=== PATIENT | female | born 1955 ===

== ENCOUNTER 2017-07-05 17:39 | Emergency (ER) | payer OTHER ==
[2017-07-05 17:48] VITALS: O2SAT 97
[2017-07-05 18:47] LABS: BASO # 0.1 K/uL (0.0-0.2); BASO % 1.3 % (0.0-2.0); EOS # 0.2 K/uL (0.0-0.7); EOS % 3.7 % (0.0-4.0); HEMOGLOBIN 13.6 g/dL (12.0-16.0); LYMPH # 1.7 K/uL (1.0-4.3); LYMPH % 32.8 % (20.0-40.0); MEAN CELL VOLUME 92.8 fl (81.0-99.0); MEAN CORPUSCULAR HGB CONC 32.3 g/dL (33.0-37.0); MEAN PLATELET VOLUME 10.3 fl (7.2-11.7); MONO # 0.5 K/uL (0.0-0.8); MONO % 9.8 % (0.0-10.0); NEUT # 2.7 K/uL (1.8-7.0); NEUT % 52.4 % (50.0-75.0); NRBC % 0.2 % (0.0-0.0); RBC 4.53 Mil/uL (3.80-5.20); RED CELL DISTRIBUTION WIDTH 15.9 % (11.5-14.5); WHITE BLOOD COUNT 5.1 K/uL (4.8-10.8)
[2017-07-05 19:03] LABS: ALB/GLOB RATIO 0.8 (1.0-2.1); ALBUMIN 3.7 g/dL (3.5-5.0); ALT/SGPT 199 U/L (9-52); AST/SGOT 208 U/L (14-36); BLOOD UREA NITROGEN 11 mg/dl (7-17); GFR AFRICAN-AMERICAN > 60; GFR NON-AFRICAN AMERICAN > 60; LIPASE 85 U/L (23-300); MAGNESIUM 1.8 MG/DL (1.6-2.3)
[2017-07-05 19:13] LABS: B-TYPE NATRIURETIC PEPTIDE 215 pg/ml (0-900)
[2017-07-05 19:33] LABS: PARTIAL THROMBOPLASTIN TIME 30.8 Seconds (25.6-37.1)
[2017-07-05 19:38] LABS: BARBITURATES, UR NEGATIVE (NEGATIVE); BENZODIAZEPINES, UR NEGATIVE (NEGATIVE); OPIATES, UR NEGATIVE (NEGATIVE); PHENCYCLIDINE, UR NEGATIVE (NEGATIVE)
[2017-07-05 20:06] LABS: URINE BACTERIA OCC (<OCC); URINE BILIRUBIN NEGATIVE (NEGATIVE); URINE BLOOD NEGATIVE (NEGATIVE); URINE CLARITY SLIGHTY-CLOUDY (Clear); URINE COLOR YELLOW (YELLOW); URINE GLUCOSE (UA) NEG (Normal); URINE LEUKOCYTE ESTERASE NEG Leu/uL (Negative); URINE NITRATE NEGATIVE (NEGATIVE); URINE PROTEIN NEGATIVE (NEGATIVE)
--- NOTE | 2017-07-05 20:09 | ED PDOC ---
HPI: General Adult Time Seen by Provider: 07/05/17 17:56 Chief Complaint (Nursing): Weakness/Neurological Deficit Chief Complaint (Provider): Headache, Nausea, Dizziness, SOB History Per: Patient History/Exam Limitations: no limitations Onset/Duration Of Symptoms: Days (2 days ago) Current Symptoms Are (Timing): Still Present Additional Complaint(s): 61 y/o female with a history of transient ischemic attack and hypertension, presents to the ED complaining of headache, nausea, dizziness, and shortness of breath, onset of 2 days ago. Patient reports of the symptoms initially being mild, but worsened today, prompting her visit to the ED. Patient denies any other medical problems. Past Medical History Reviewed: Historical Data, Nursing Documentation, Vital Signs Vital Signs: Last Vital Signs Temp 98.4 F 07/05/17 17:45 Pulse 67 07/05/17 17:45 Resp 20 07/05/17 17:45 BP 146/68 07/05/17 17:45 Pulse Ox 97 07/05/17 17:45 - Medical History PMH: Arthritis, Back Problems (CERVICAL RADICULOPATHY), CAD, HTN, Osteoporosis, Rheumatoid Arthritis, TIA - Surgical History Surgical History: Appendectomy, Cholecystectomy - Family History Family History: States: Unknown Family Hx - Social History Current smoker - smoking cessation education provided: No Ex-Smoker (has not smoked in the last 12 months): No Alcohol: Social Drugs: Denies - Immunization History Hx Tetanus Toxoid Vaccination: No Hx Influenza Vaccination: No Hx Pneumococcal Vaccination: No - Home Medications Home Medications: Ambulatory Orders Medication Instructions Recorded Aspirin 81 mg PO DAILY 10/13/13 Losartan 50 mg PO DAILY 10/13/13 amLODIPine 10 mg PO DAILY 10/13/13 DiphenhydrAMINE [Benadryl] 25 mg PO BID #10 cap 11/18/15 Famotidine [Pepcid] 20 mg PO BID #10 tab 11/18/15 Prednisone 20 mg PO DAILY #3 tablet 11/18/15 Methocarbamol [Robaxin] 500 mg PO Q12 #20 tab 07/30/16 - Allergies Allergies/Adverse Reactions: Allergies Allergy/AdvReac Type Severity Reaction Status Date / Time No Known Allergies Allergy Verified 07/30/16 10:37 Review of Systems ROS Statement: Except As Marked, All Systems Reviewed And Found Negative Respiratory: Positive for: Shortness of Breath Neurological: Positive for: Headache, Dizziness Physical Exam - Reviewed Nursing Documentation Reviewed: Yes Vital Signs Reviewed: Yes - Physical Exam Appears: Positive for: Well, Non-toxic, No Acute Distress Head Exam: Positive for: ATRAUMATIC, NORMAL INSPECTION, NORMOCEPHALIC Skin: Positive for: Normal Color, Warm Eye Exam: Positive for: Normal appearance, EOMI, PERRL ENT: Positive for: Normal ENT Inspection Neck: Positive for: Normal, Painless ROM, Supple Cardiovascular/Chest: Positive for: Regular Rate, Rhythm. Negative for: Murmur Respiratory: Positive for: Normal Breath Sounds. Negative for: Respiratory Distress Gastrointestinal/Abdominal: Positive for: Normal Exam, Soft. Negative for: Tenderness Back: Positive for: Normal Inspection Extremity: Positive for: Normal ROM. Negative for: Pedal Edema, Deformity Neurologic/Psych: Positive for: Alert, Oriented. Negative for: Motor/Sensory Deficits - Laboratory Results Result Diagrams: 07/05/17 18:42 07/05/17 18:42 - ECG ECG: Positive for: Interpreted By Me, Viewed By Me ECG Rhythm: Positive for: Right Bundle Branch Block (incomplete) Rate: 64 O2 Sat by Pulse Oximetry: 97 (RA) Pulse Ox Interpretation: Normal - Radiology X-Ray: Interpreted by Me, Viewed By Me X-Ray Interpretation: No Acute Disease Medical Decision Making Medical Decision Making: Time: --18:33 Impression: --Dizziness and Chest pain Plan: --CT Angio Chest PE protocol --Head CT w/o contrast --ECG --D Dimer --PTT -Prothrombin Time --Chest X-ray --IV Insertion --influenza A B Reassess --20:15 Chest X-ray reviewed and revealed no clinically significant abnormalities. patient to be signed out to Dr. Roger pending CT Head and Angio Chest. Scribe Attestation: Documented by Senthil Hines acting as a scribe for El Barros MD. Provider Attestation: All medical record entries made by the Scribe were at my direction and personally dictated by me. I have reviewed the chart and agree that the record accurately reflects my personal performance of the history, physical exam, medical decision making, and the department course for this patient. I have also personally directed, reviewed, and agree with the discharge instructions and disposition. Disposition - Clinical Impression Clinical Impression: Dizziness, Chest pain - Patient ED Disposition Is Patient to be Admitted: Transfer of Care Discussed With : Mark Roger Doctor Will See Patient In The: ED - Disposition Disposition: Transfer of Care Disposition Time: 20:15 Condition: FAIR Patient Signed Over To: Mark Roger
--- NOTE | 2017-07-05 20:27 | ED PDOC ---
"- Laboratory Results Result Diagrams: 07/05/17 18:42 07/05/17 18:42 - ECG O2 Sat by Pulse Oximetry: 97 (RA) Medical Decision Making Medical Decision Making: Time: --20:15 Impression: --Dizziness and Chest pain Reassess: --Patient signed over to the provider by Dr. Barros pending CT Abd & Pelvis and Angio Chest. --21:32 EXAM: CT Head Without Intravenous Contrast FINDINGS: Brain: Minimal atrophy. No intracranial hemorrhage. No mass. No definite edema. Ventricles: No hydrocephalus. Bones/joints: Calvarial osteomas. No acute fracture. Soft tissues: Unremarkable. Vasculature: Mild atherosclerotic disease of intracranial arteries. Sinuses: No acute sinusitis. Mastoid air cells: No mastoid effusion. Orbits: Unremarkable as visualized. IMPRESSION: 1. No definite acute intracranial abnormality. 2. Incidental/non-acute findings are described above. EXAM: CT Angiography Chest With Intravenous Contrast FINDINGS: Artifacts: Motion artifact degrades image quality. Heart, aorta and Pulmonary arteries: Heart size is normal. There is no pericardial effusion. The aorta is normal in caliber.There are vascular calcifications.There are no pulmonary emboli. Lungs and pleural spaces: Trachea and main bronchi are patent. There is minimal linear scarring at the left apex. There is no lobar or segmental consolidation. There is subsegmental atelectasis or scarring in the lingula and middle lobe. There is minimal dependent atelectasis at the lung bases. There are no effusions. Mediastinum: There is a small hiatal hernia. Esophagus is unremarkable. There are no pathologically enlarged mediastinal or hilar nodes. Thyroid: Thyroid is not optimally demonstrated. Bones/joints: There are no acute osseous abnormalities. There is minimal spondylosis KEI PAL | Final Radiology Report CONFIDENTIALITY STATEMENT This report is intended only for use by the referring physician, and only in accordance with law. If you received this in error, call [phone]. Page 2 of 2 Lymph nodes: See above. Upper abdomen: There are no acute abnormalities in the visualized portion of the abdomen.The spleen is enlarged. Gallbladder is absent. Common duct is prominent. IMPRESSION: No aneurysm, dissection or pulmonary embolus, no focal pneumonia Thank you for allowing us to participate in the care of your patient. Dictated and Authenticated by: Krystyna Atkins MD 07/05/2017 10:50 PM Eastern Time ([place] & [place]) EXAM: CT Abdomen and Pelvis With Intravenous Contrast FINDINGS: Lower thorax: Heart size is normal. There are coronary artery calcifications. There is a small hiatal hernia. There are paraesophageal varices in the posterior mediastinum There is atelectasis at the lung bases. ABDOMEN: Liver: Hepatic contours are mildly nodular. Gallbladder and bile ducts: Gallbladder is absent. There is prominence of the common duct. Pancreas: unremarkable Spleen: The spleen is enlarged. Adrenals: unremarkable Kidneys and ureters: unremarkable Stomach and bowel: Stomach is incompletely distended which accentuates the gastric wall.Bowel rotation is normal. Small bowel is mildly distended with fluid and air. There is fluid and air throughout the small bowel. There is no obstruction. Terminal ileum is unremarkable. There are clips at the base of the cecum. There is fluid and air in the right and transverse colon. There is scattered sigmoid diverticulosis. KEI PAL | Final Radiology Report CONFIDENTIALITY STATEMENT This report is intended only for use by the referring physician, and only in accordance with law. If you received this in error, call [phone]. Page 2 of 2 Appendix: See stomach and bowel PELVIS: Bladder: unremarkable Reproductive: Uterus is absent. Right adnexa is unremarkable. There are coarse calcifications in the left adnexa. ABDOMEN and PELVIS: Intraperitoneal space: There is no free air or free fluid. Bones/joints: Bony structures are mildly osteopenic with degenerative change. Soft tissues: unremarkable Vasculature: There are vascular calcifications. There are pelvic varices on the left. There are multiple collateral vessels/varices in the epigastric region. There are multiple phleboliths. Lymph nodes: There is no pathologic adenopathy. IMPRESSION: Cirrhosis with splenomegaly and varices; gastric wall thickening, underdistention versus true thickening; distended small bowel suggesting ileus, no obstruction; diverticulosis without CT findings of diverticulitis prominent common duct status post cholecystectomy ; appendectomy and hysterectomy Time:23:32 Upon provider evaluation patient is medically stable, and showed improvement in symptoms. Provider discussed cirrhosis in CT scan and treated for hepatology cervix. Patient was stable for discharge and diagnosed with dizziness Scribe Attestation: Documented by Senthil Hines and Kaushik Martin acting as a scribe for Mark Roger MD. Provider Attestation: All medical record entries made by the Scribe were at my direction and personally dictated by me. I have reviewed the chart and agree that the record accurately reflects my personal performance of the history, physical exam, medical decision making, and the department course for this patient. I have also personally directed, reviewed, and agree with the discharge instructions and disposition. Disposition - Clinical Impression Clinical Impression: Dizziness - POA Present On Arrival: None - Disposition Disposition: Routine/Home Disposition Time: 22:00 Condition: STABLE Instructions: Dizziness (ED) Forms: [facility] (German) Print Language: SERBIAN"
[2017-07-05] MEDS ORDERED: Sodium Chloride 0.9% 50 ML IV ONE (21:05)
[2017-07-05] MEDS ORDERED: Iodixanol 320 MG/ML 100 ML BOTTLE IV ONE (21:05)
--- NOTE | 2017-07-05 21:32 | CT ---
EXAM: CT Head Without Intravenous Contrast CLINICAL HISTORY: 61 years old, female; Pain; Headache; Headache not specified; Additional info: LARRY TECHNIQUE: Axial computed tomography images of the head/brain without intravenous contrast. All CT scans at this facility use one or more dose reduction techniques, viz.: automated exposure control; ma/kV adjustment per patient size (including targeted exams where dose is matched to indication; i.e. head); or iterative reconstruction technique. Coronal and sagittal reformatted images were created and reviewed. COMPARISON: CT BRAIN W/O 2008-07-20 16:28 FINDINGS: Brain: Minimal atrophy. No intracranial hemorrhage. No mass. No definite edema. Ventricles: No hydrocephalus. Bones/joints: Calvarial osteomas. No acute fracture. Soft tissues: Unremarkable. Vasculature: Mild atherosclerotic disease of intracranial arteries. Sinuses: No acute sinusitis. Mastoid air cells: No mastoid effusion. Orbits: Unremarkable as visualized. IMPRESSION: 1. No definite acute intracranial abnormality. 2. Incidental/non-acute findings are described above.
[2017-07-05 21:50] LABS: INR 1.17 (0.92-1.08); PROTHROMBIN TIME 13.2 SECONDS (9.7-12.2)
--- NOTE | 2017-07-05 22:50 | CT ---
EXAM: CT Angiography Chest With Intravenous Contrast EXAM DATE/TIME: 07/05/2017 7:54 PM CLINICAL HISTORY: 61 years old, female; Signs and symptoms; Other: Dizzy, flu like symptoms; Additional info: Dizzy R/O pe TECHNIQUE: Axial computed tomographic angiography images of the chest with intravenous contrast using pulmonary embolism protocol. All CT scans at this facility use one or more dose reduction techniques, viz.: automated exposure control; ma/kV adjustment per patient size (including targeted exams where dose is matched to indication; i.e. head); or iterative reconstruction technique. MIP reconstructed images were created and reviewed. Coronal and sagittal reformatted images were created and reviewed. CONTRAST: 90 mL of [id number] administered intravenously. COMPARISON: CR - CHEST ONE VIEW 2017-07-05 18:37 FINDINGS: Artifacts: Motion artifact degrades image quality. Heart, aorta and Pulmonary arteries: Heart size is normal. There is no pericardial effusion. The aorta is normal in caliber.There are vascular calcifications.There are no pulmonary emboli. Lungs and pleural spaces: Trachea and main bronchi are patent. There is minimal linear scarring at the left apex. There is no lobar or segmental consolidation. There is subsegmental atelectasis or scarring in the lingula and middle lobe. There is minimal dependent atelectasis at the lung bases. There are no effusions. Mediastinum: There is a small hiatal hernia. Esophagus is unremarkable. There are no pathologically enlarged mediastinal or hilar nodes. Thyroid: Thyroid is not optimally demonstrated. Bones/joints: There are no acute osseous abnormalities. There is minimal spondylosis Lymph nodes: See above. Upper abdomen: There are no acute abnormalities in the visualized portion of the abdomen.The spleen is enlarged. Gallbladder is absent. Common duct is prominent. IMPRESSION: No aneurysm, dissection or pulmonary embolus, no focal pneumonia
--- NOTE | 2017-07-05 22:58 | CT ---
EXAM: CT Abdomen and Pelvis With Intravenous Contrast EXAM DATE/TIME: 07/05/2017 8:10 PM CLINICAL HISTORY: 61 years old, female; Signs and symptoms; Nausea; Additional info: Nausea R/O sbo TECHNIQUE: Axial computed tomography images of the abdomen and pelvis with intravenous contrast. All CT scans at this facility use one or more dose reduction techniques, viz.: automated exposure control; ma/kV adjustment per patient size (including targeted exams where dose is matched to indication; i.e. head); or iterative reconstruction technique. Coronal and sagittal reformatted images were created and reviewed. CONTRAST: 90 mL of [id number] administered intravenously. COMPARISON: There are no prior studies for comparison. FINDINGS: Lower thorax: Heart size is normal. There are coronary artery calcifications. There is a small hiatal hernia. There are paraesophageal varices in the posterior mediastinum There is atelectasis at the lung bases. ABDOMEN: Liver: Hepatic contours are mildly nodular. Gallbladder and bile ducts: Gallbladder is absent. There is prominence of the common duct. Pancreas: unremarkable Spleen: The spleen is enlarged. Adrenals: unremarkable Kidneys and ureters: unremarkable Stomach and bowel: Stomach is incompletely distended which accentuates the gastric wall.Bowel rotation is normal. Small bowel is mildly distended with fluid and air. There is fluid and air throughout the small bowel. There is no obstruction. Terminal ileum is unremarkable. There are clips at the base of the cecum. There is fluid and air in the right and transverse colon. There is scattered sigmoid diverticulosis. Appendix: See stomach and bowel PELVIS: Bladder: unremarkable Reproductive: Uterus is absent. Right adnexa is unremarkable. There are coarse calcifications in the left adnexa. ABDOMEN and PELVIS: Intraperitoneal space: There is no free air or free fluid. Bones/joints: Bony structures are mildly osteopenic with degenerative change. Soft tissues: unremarkable Vasculature: There are vascular calcifications. There are pelvic varices on the left. There are multiple collateral vessels/varices in the epigastric region. There are multiple phleboliths. Lymph nodes: There is no pathologic adenopathy. IMPRESSION: Cirrhosis with splenomegaly and varices; gastric wall thickening, underdistention versus true thickening; distended small bowel suggesting ileus, no obstruction; diverticulosis without CT findings of diverticulitis prominent common duct status post cholecystectomy; appendectomy and hysterectomy Additional nonemergent findings as described above.
[2017-07-05 23:42] VITALS: BP 146/96; PULSE 60; RESP 16; TEMP 98
--- NOTE | 2017-07-06 09:49 | RAD ---
PROCEDURE: CHEST RADIOGRAPH, 1 VIEW HISTORY: Chest pain COMPARISON: Comparison chest 07/20/2008 FINDINGS: LUNGS: Clear. PLEURA: No pneumothorax or pleural fluid seen. CARDIOVASCULAR: Normal. OSSEOUS STRUCTURES: No significant abnormalities. VISUALIZED UPPER ABDOMEN: Normal. OTHER FINDINGS: None. IMPRESSION: No active disease.
--- NOTE | 2017-07-07 13:01 | CARD ---
APPROVED REPORT EKG Measurement Heart [id number] <Conclusion> Normal sinus rhythm Left axis deviation Incomplete right bundle branch block Abnormal ECG
== END 2017-07-05 23:44 | disposition home or self-care (01) ==
LOC: H.ER 17:39
DX: R42 Dizziness and giddiness (principal); I10 Essential (primary) hypertension; K74.60 Unspecified cirrhosis of liver; Z79.82 Long term (current) use of aspirin; Z86.73 Personal history of transient ischemic attack (TIA), and cerebral infarction without residual deficits; Z90.49 Acquired absence of other specified parts of digestive tract; Z90.710 Acquired absence of both cervix and uterus
CPT/HCPCS: 70450; 71045; 71275; 74177; 80053; 81003; 83690; 83735; 83880; 84484; 85025; 85378; 85610; 85730; 87804; 93005; 99285; G0480; Q9967

== ENCOUNTER 2017-07-07 11:52 | Emergency (ER) | payer OTHER ==
[2017-07-07 12:05] VITALS: BP 150/75; PULSE 66; RESP 18; TEMP 98.2; O2SAT 98
--- NOTE | 2017-07-07 12:46 | ED PDOC ---
HPI: General Adult Time Seen by Provider: 07/07/17 12:05 Chief Complaint (Nursing): Abnormal Skin Integrity Chief Complaint (Provider): Rash History Per: Patient History/Exam Limitations: no limitations Onset/Duration Of Symptoms: Days Have you had recent travel within the past 21 days to any of the following countries: [place], [place], [place] or [place]?: No Current Symptoms Are (Timing): Still Present Additional History Per: Patient Additional Complaint(s): 61yo female with history of hypertension, presents to ED with complaints of a red rash to her posterior bilateral lower extremities for the past 2 days. Patient thinks the rash might have started after she received IV contrast for a CT scan. She denies any fever, shortness of breath, throat swelling. She offers no other medical complaints. Past Medical History Reviewed: Historical Data, Nursing Documentation, Vital Signs Vital Signs: Last Vital Signs Temp 98.2 F 07/07/17 11:57 Pulse 66 07/07/17 11:57 Resp 18 07/07/17 11:57 BP 150/75 07/07/17 11:57 Pulse Ox 98 07/07/17 13:04 - Medical History PMH: Arthritis, Back Problems (CERVICAL RADICULOPATHY), CAD, HTN, Osteoporosis, Rheumatoid Arthritis, TIA - Surgical History Surgical History: Appendectomy, Cholecystectomy - Family History Family History: States: Unknown Family Hx - Immunization History Hx Tetanus Toxoid Vaccination: No Hx Influenza Vaccination: No Hx Pneumococcal Vaccination: No - Home Medications Home Medications: Ambulatory Orders Medication Instructions Recorded Aspirin 81 mg PO DAILY 10/13/13 Losartan 50 mg PO DAILY 10/13/13 amLODIPine 10 mg PO DAILY 10/13/13 DiphenhydrAMINE [Benadryl] 25 mg PO BID #10 cap 11/18/15 Famotidine [Pepcid] 20 mg PO BID #10 tab 11/18/15 Prednisone 20 mg PO DAILY #3 tablet 11/18/15 Methocarbamol [Robaxin] 500 mg PO Q12 #20 tab 07/30/16 Clindamycin [Cleocin] 300 mg PO QID #40 cap 07/07/17 - Allergies Allergies/Adverse Reactions: Allergies Allergy/AdvReac Type Severity Reaction Status Date / Time No Known Allergies Allergy Verified 07/30/16 10:37 Review of Systems ROS Statement: Except As Marked, All Systems Reviewed And Found Negative Constitutional: Negative for: Fever ENT: Negative for: Throat Swelling Respiratory: Negative for: Shortness of Breath Skin: Positive for: Rash Physical Exam - Reviewed Nursing Documentation Reviewed: Yes Vital Signs Reviewed: Yes - Physical Exam Appears: Positive for: Non-toxic, No Acute Distress Head Exam: Positive for: ATRAUMATIC, NORMAL INSPECTION, NORMOCEPHALIC Skin: Positive for: Rash (blanching erythema, symmetrical on both lower extremities.) Eye Exam: Positive for: Normal appearance Neck: Positive for: Supple Respiratory: Negative for: Respiratory Distress Neurologic/Psych: Positive for: Alert, Oriented - ECG O2 Sat by Pulse Oximetry: 98 (RA) Pulse Ox Interpretation: Normal Medical Decision Making Medical Decision Making: Impression: Rash Plan: -- Case discussed with Dr. Bell, ED attending and patient to be discharged home with antibiotics. Patient informed to follow up with PCP in 1-2 days. Scribe Attestation: Documented by Tigist Limon acting as a scribe for TRINY Padron Provider Attestation: All medical record entries made by the Scribe were at my direction and personally dictated by me. I have reviewed the chart and agree that the record accurately reflects my personal performance of the history, physical exam, medical decision making, and the department course for this patient. I have also personally directed, reviewed, and agree with the discharge instructions and disposition. Disposition - Clinical Impression Clinical Impression: Cellulitis - Disposition Disposition Time: 13:23 Condition: STABLE Prescriptions: Clindamycin [Cleocin] 300 mg PO QID #40 cap Instructions: Cellulitis (ED) Forms: [employer] (Divehi) Print Language: TRINIDADIAN
== END 2017-07-07 13:51 | disposition home or self-care (01) ==
LOC: H.ER 11:52
DX: L03.90 Cellulitis, unspecified (principal)

== ENCOUNTER 2017-12-08 08:52 | Day surgery (SDC) | payer OTHER ==
[2017-12-08] MEDS ORDERED: Lactated Ringer's 500 ML IV ONE (10:00)
[2017-12-08 11:28] VITALS: BMI 23.0
[2017-12-08] MEDS ORDERED: Propofol 10 mg/ml Inj (20 ML) ONE (12:56)
[2017-12-08 13:32] VITALS: TEMP 97
[2017-12-08 13:54] VITALS: BP 119/54; PULSE 60; RESP 19; O2SAT 99
== END 2017-12-08 14:33 | disposition home or self-care (01) ==
LOC: H.ENDO 08:52
PROVIDERS: ATTEND Internal Medicine Gastroenterology
DX: Z12.11 Encounter for screening for malignant neoplasm of colon (principal); K64.9 Unspecified hemorrhoids; K74.60 Unspecified cirrhosis of liver; I85.10 Secondary esophageal varices without bleeding; Z86.73 Personal history of transient ischemic attack (TIA), and cerebral infarction without residual deficits; E78.5 Hyperlipidemia, unspecified; I10 Essential (primary) hypertension; M19.90 Unspecified osteoarthritis, unspecified site
CPT/HCPCS: 43244; 45378; J2001; J2704; J7120

== ENCOUNTER 2018-01-12 09:10 | Day surgery (SDC) | payer OTHER ==
[2018-01-12] MEDS ORDERED: Lactated Ringer's 500 ML IV ONE (11:07)
[2018-01-12] MEDS ORDERED: Midazolam 2 MG/2 ML VIAL ONE (11:47)
[2018-01-12] MEDS ORDERED: Propofol 10 mg/ml Inj (20 ML) ONE (11:48)
[2018-01-12 12:09] VITALS: TEMP 98
[2018-01-12 12:30] VITALS: BP 116/65; PULSE 55; RESP 15; O2SAT 100
== END 2018-01-12 12:38 | disposition home or self-care (01) ==
LOC: H.ENDO 09:10
PROVIDERS: ATTEND Internal Medicine Gastroenterology
DX: I85.10 Secondary esophageal varices without bleeding (principal); K74.60 Unspecified cirrhosis of liver; I10 Essential (primary) hypertension
CPT/HCPCS: 43235; J2001; J2250; J2704; J7120